=== PATIENT | female | born 1950 | race Caucasian/White ===

== ENCOUNTER → 2018-11-17 | Outpatient (CLI) | payer MEDICARE, OTHER ==
--- NOTE | 2018-11-17 15:06 | CARD ---
MR#: [id number] Date of Study: 11/17/2018 Ordering Physician: LLOYD CONNER, Referring Physician: LLOYD CONNER, Tech: Yolande Dai CLARA APPROVED REPORT EXAM: Two-dimensional and M-mode echocardiogram with Doppler and color Doppler. Other Information Quality : Good Rhythm : NSR INDICATION Peripheral Edema History of Chemotherapy 2D DIMENSIONS RVDd3.1 (2.9-3.5cm)Left Atrium(2D)3.2 (1.6-4.0cm) IVSd1.0 (0.7-1.1cm)Aortic Root(2D)2.7 (2.0-3.7cm) LVDd4.1 (3.9-5.9cm)LVOT Diameter2.0 (1.8-2.4cm) PWd0.9 (0.7-1.1cm)LVDs2.9 (2.5-4.0cm) FS (%) 28.1 %SV40.5 ml LVEF(%)55.0 (>50%) Aortic Valve AoV Peak Marvin.104.7cm/sAoV VTI20.8cm AO Peak GR.4.4mmHgLVOT Peak Marvin.80.2cm/s AO Mean GR.2mmHgAVA (VMAX)2.32cm2 HERI (VTI)2.80cm2 Mitral Valve MV E Islesgze43.6cm/sMV DECEL MPJH610xe MV A Eqenueoj37.8cm/sE/A Ratio0.8 Tricuspid Valve TR P. Sgfebzxn710gq/sRAP PFWZVDIQ5liUc TR Peak Gr.57nxIdEQTL64qpBi Pulmonary Vein S1 Ukaplitj62.2cm/sD2 Crmgpxxw87.3cm/s LEFT VENTRICLE The left ventricle is normal size. There is normal left ventricular wall thickness. The left ventricu lar systolic function is normal and the ejection fraction is within normal range. The Ejection Fracti on is 55%. There is normal LV segmental wall motion. Transmitral Doppler flow pattern is Grade I-abno rmal relaxation pattern. RIGHT VENTRICLE The right ventricle is normal size. The right ventricular systolic function is normal. ATRIA The left atrium size is normal. The right atrium size is normal. The interatrial septum is intact wit h no evidence for an atrial septal defect or patent foramen ovale as noted on 2-D or Doppler imaging. AORTIC VALVE The aortic valve is calcified but opens well. Doppler and Color Flow revealed no significant aortic r egurgitation. There is no significant aortic valvular stenosis. MITRAL VALVE The mitral valve is calcified but opens well. There is no evidence of mitral valve prolapse. There is no mitral valve stenosis. Doppler and Color-flow revealed trace mitral regurgitation. TRICUSPID VALVE The tricuspid valve is normal in structure and function. Doppler and Color Flow revealed mild tricusp id regurgitation. The PA pressure was estimated at 26 mmHg. There is no tricuspid valve stenosis. PULMONIC VALVE The pulmonic valve is not well visualized. Doppler and Color Flow revealed mild pulmonic valvular reg urgitation. There is no pulmonic valvular stenosis. GREAT VESSELS The aortic root is normal in size. The ascending aorta is normal in size. The IVC is normal in size a nd collapses >50% with inspiration. PERICARDIAL EFFUSION There is no evidence of significant pericardial effusion. Critical Notification Critical Value: No <Conclusion> The left ventricular systolic function is normal and the ejection fraction is within normal range. Th e Ejection Fraction is 55%. There is normal LV segmental wall motion. Doppler and Color Flow revealed mild pulmonic valvular regurgitation. No significant pulmonary HTN. Mild diastolic dysfunction. Signed by : Kd Bourne, Electronically Approved : 11/17/2018 15:06:08
== END | disposition home or self-care (01) ==
LOC: ECHO 13:13
PROVIDERS: ATTEND Family Medicine
DX: I37.1 Nonrheumatic pulmonary valve insufficiency (principal); I07.1 Rheumatic tricuspid insufficiency; R60.0 Localized edema
CPT/HCPCS: 93306

== ENCOUNTER → 2018-11-21 | Outpatient (CLI) | payer MEDICARE, OTHER ==
--- NOTE | 2018-11-21 15:42 | RAD ---
MRI right knee without contrast dated 11/21/2018. No comparison available. CLINICAL INDICATION: Right knee pain and popping and swelling for 3 months. TECHNIQUE: Routine multiplanar multisequence MR imaging performed. FINDINGS: Mild tricompartment hypertrophic change with small marginal osteophytes. Thinning and surface irregularity of the articular cartilage throughout. There is full-thickness cartilage fissuring over the weightbearing surface lateral femoral condyle with full-thickness cartilage loss of the lateral tibial plateau. No full-thickness defect of the medial compartment cartilage. There is full-thickness cartilage loss of the lateral patellar facet and patellar apex and lateral femoral trochlea. Small to moderate joint effusion. No intra-articular loose body. Small popliteal cyst. Anterior cruciate and posterior cruciate ligaments intact. Medial and lateral collateral complexes intact. Iliotibial band, popliteus tendon and pes anserine complex within normal limits. Quadriceps and patellar tendon are intact. Mild increased signal within the substance of the distal patellar tendon. Mild patchy edema within the prepatellar and superficial infrapatellar soft tissues. No abnormality of the medial or lateral retinaculum. There is mild lateral patellar subluxation with tibial tubercle to trochlear groove distance estimated at 12 mm. There is a small oblique linear defect at the lateral meniscal body that extends to the femoral articular surface on 2 consecutive coronal slices. Intrasubstance increased signal at the posterior horn, likely mucoid degeneration. Medial meniscus is normal in morphology and signal. IMPRESSION: 1. Mild tricompartmental degenerative arthrosis and chondromalacia. There is full-thickness cartilage loss at the anterior and lateral compartments. 2. Small horizontal oblique tear lateral meniscal body. 3. Small to moderate size joint effusion with small popliteal cyst. 4. Mild patellar tendinosis with mild lateral patellar subluxation. Electronically signed by: Lazaro Jon MD (11/21/2018 3:39 PM) [id number]
== END | disposition home or self-care (01) ==
LOC: MRI 14:06
PROVIDERS: ATTEND Orthopaedic Surgery
DX: S83.011A Lateral subluxation of right patella, initial encounter (principal); S83.281A Other tear of lateral meniscus, current injury, right knee, initial encounter; M17.11 Unilateral primary osteoarthritis, right knee; M94.261 Chondromalacia, right knee; M25.461 Effusion, right knee; M71.21 Synovial cyst of popliteal space [Baker], right knee; M25.761 Osteophyte, right knee; X58.XXXA Exposure to other specified factors, initial encounter; Y93.89 Activity, other specified; Y92.89 Other specified places as the place of occurrence of the external cause; Y99.8 Other external cause status
CPT/HCPCS: 73721

== ENCOUNTER → 2019-01-03 | Outpatient (CLI) | payer MEDICARE, OTHER ==
[~2019-01-03] MED LIST: REGADENOSON 0.4 MG/5 ML DISP.SYRIN. IV ONE
[2019-01-03 12:04] LABS: BILIRUBIN,URINE NEGATIVE (NEG); CLARITY,URINE CLEAR; COLOR,URINE YELLOW; NITRITE,URINE NEGATIVE (NEG); PH,URINE 5.5; PROTEIN,URINE NEGATIVE (NEG-TRACE); UROBILINOGEN,URINE 0.2 mg/dL (0.2 mg/dL)
--- NOTE | 2019-01-03 12:06 | RAD ---
MR#: [id number] Date of Study: 01/03/2019 Ordering Physician: PRINCE BOURNE, Referring Physician: JULIANNE MONTIEL Tech: RT Siddharth Poole) (N) APPROVED REPORT Test Type: Pharmacological Stress Nurse/Tech: Dwain WILKINS Test Indications: Fatigue, and SOB with exertion Cardiac History: See EMR Medications: See EMR Medical History: Ovarian CA w/ chemo treatments, See EMR Resting ECG: SR Resting Heart Rate: 64 bpm Resting Blood Pressure: 143/75mmHg Pretest Chest Pain: No chest pain Nurse/Tech Notes Lungs CTA, Heart tones regular Consent: The procedure was explained to the patient in lay terms. Informed consent was witnessed. Mirza eout was entered into Instant [employer]. History and Stress Test performed by RT Siddharth Delvalle) (N) Pharm. Details Pharmacologic stress testing was performed using 0.4mg per 5ml of regadenoson given intravenously ove r 7-10 seconds. Stress Symptoms No chest pain or symptoms. POST EXERCISE Reason for Termination: Infusion complete Max HR: 89 bpm Max Blood Pressure: 161/72mmHg Chest Pain: No. Arrhythmia: No. ST Change: No. INTERPRETATION Stress EKG Conclusion: NO EVIDENCE OF STRESS INDUCED EKG CHANGES Imaging Protocol IMAGE PROTOCOL: Rest Tc-99m/stress Tc-99m 1 day Rest: Stress: Viability: Radiopharm.Tc99m FexrwoxlrNj39x Sestamibi Rxsb32rYi 33mCi Duration 15min. 15min. Img Date 01/03/2019 01/03/2019 Inj-Img Leie27gjm. 60min. Rest Admin Site:IV - Right AntecubitalAdministrator:RT Virgilio (R)(N) Stress Admin Site: IV - Right AntecubitalAdministrator: RT Siddharth Delvalle)(N) STRESS DATA End Diast. Vol.62.0mlLVEDV index BSA30.0ml End Syst. Vol.6.0mlLVESV index BSA3.0ml Myocardial Lviq606.0gEject. Pmsxwfah52.0% Stress Scores Regional WT0.00Summed WT0.00 Regional WM0.00Summed WM0.00 The rest and stress images show normal perfusion, normal contraction and thickening. LV Perf. Quant 17 Seg. SSS0.00 17 Seg. SRS0.00 17 Seg. SDS0.00 Stress Defect Extent (% LAD)0.00Rest Defect Extent (% LAD)0.00Rev. Defect Extent (% LAD)0.00 Stress Defect Extent (% LCX) 0.00Rest Defect Extent (% LCX)0.00Rev. Defect Extent (% LCX)0.00 Stress Defect Extent (% RCA)0.00Rest Defect Extent (% RCA)0.00Rev. Defect Extent (% RCA)0.00 Stress Defect Extent (% ESTEPHANIA)0.00Rest Defect Extent (% ESTEPHANIA)0.00Rev. Defect Extent (% ESTEPHANIA)0.00 Other Information Quality:Good Risk Assessment: Low Risk IMPRESSION Normal Myocardial Perfusion exercise stress study Conclusion 1. No evidence of EKG changes with stress testing. 2. Normal perfusion at stress/rest. 3. Low risk study. 4. EF > 60%. Signed by : Prince Bourne, Electronically Approved : 01/03/2019 12:06:30
[2019-01-03 12:19] LABS: SQUAMOUS EPITHELIAL CELL,UR FEW /LPF
[2019-01-03 12:21] LABS: BACTERIA,URINE 0 /HPF (0-FEW); RBC,URINE 0 /HPF (0-2); WBC,URINE 0 /HPF (0-4)
== END | disposition home or self-care (01) ==
LOC: NM 07:26
PROVIDERS: ATTEND Internal Medicine Cardiovascular Disease
DX: R53.83 Other fatigue (principal)
CPT/HCPCS: 36415; 78452; 81001; 83880; 93017; A9500; J2785

== ENCOUNTER 2019-02-28 07:29 | Emergency (ER) | payer MEDICARE, OTHER ==
[~2019-02-28] VITALS: Ht 167.6 cm; Wt 98.0 kg
[2019-02-28] MEDS ORDERED: traMADol 50 MG TABLET PO ONE (08:00)
[2019-02-28 08:18] LABS: CLARITY,URINE CLEAR; PROTEIN,URINE NEGATIVE (NEG-TRACE)
[2019-02-28 08:24] VITALS: BP 160/89
[2019-02-28 08:26] LABS: BACTERIA,URINE MANY /HPF (0-FEW); RBC,URINE 0 /HPF (0-2); SQUAMOUS EPITHELIAL CELL,UR OCC /LPF
[2019-02-28 08:29] LABS: COLOR,URINE ORANGE
[2019-02-28] MEDS ORDERED: PHEN100T82 PO (08:35)
[2019-02-28] MEDS ORDERED: TRAM-48 PO (08:35)
[2019-02-28] MEDS ORDERED: CIPR250T30 PO (08:35)
--- NOTE | 2019-02-28 08:35 | PHYS DOC ---
Past Medical History Past Medical History: High Cholesterol, Kidney Infection Additional Past Medical Histor: ovarian cancer, retina detatchment, neuropathy Past Surgical History: Hysterectomy Additional Past Surgical Histo: cataract Alcohol Use: None Drug Use: None Adult General Chief Complaint Chief Complaint: PAIN ON URINATION [facility] HPI Patient is a 68 year old female who presents with complaining of painful ur ination. Patient complaining of urinary frequency and dysuria for the last 1 week like her previous episodes of UTI. Patient denies fever, chills, vomiting, diarrhea and constipation, chest pain and shortness of breath. Patient seen by an urologist for current UTI with plan of cystoscopy next week. Review of Systems Review of Systems Constitutional: Denies fever or chills [] Eyes: Denies change in visual acuity, redness, or eye pain [] HENT: Denies nasal congestion or sore throat [] Respiratory: Denies cough or shortness of breath [] Cardiovascular: No additional information not addressed in HPI [] GI: Denies abdominal pain, nausea, vomiting, bloody stools or diarrhea [] : Denies hematuria, reports dysuria and urinary frequency [] Musculoskeletal: Denies back pain or joint pain [] Integument: Denies rash or skin lesions [] Neurologic: Denies headache, focal weakness or sensory changes [] Endocrine: Denies polyuria or polydipsia [] All other systems were reviewed and found to be within normal limits, except as documented in this note. Current Medications Current Medications Current Medications Medications (Trade) Dose Ordered Sig/Alberto Start Time Stop Time Status Last Admin Dose Admin Tramadol HCl (Ultram) 50 mg 1X ONCE 02/28/19 08:00 02/28/19 08:07 DC 02/28/19 08:24 50 MG Allergies Allergies Allergies Coded Allergies Type Severity Reaction Last Updated Verified No Known Drug Allergies 01/03/19 No Physical Exam Physical Exam Constitutional: Well developed, well nourished, mild distress, non-toxic appearance. [] HENT: Normocephalic, atraumatic, oropharynx moist. Eyes: PERRLA, EOMI, conjunctiva normal, no discharge. [] Neck: Normal range of motion, no tenderness, supple, no stridor. [] Cardiovascular:Heart rate regular rhythm, no murmur [] Lungs & Thorax: Bilateral breath sounds clear to auscultation [] Abdomen: Bowel sounds normal, soft, no tenderness, no masses, no pulsatile masses. [] Skin: Warm, dry, no erythema, no rash. [] Back: No tenderness, no CVA tenderness. [] Extremities: No tenderness, no cyanosis, no clubbing, ROM intact, no edema. [] Neurologic: Alert and oriented X 3, normal motor function, normal sensory function, no focal deficits noted. [] Psychologic: Affect normal, judgement normal, mood normal. [] Current Patient Data Vital Signs Vital Signs Date Time Temp Pulse Resp B/P (MAP) Pulse Ox O2 Delivery O2 Flow Rate FiO2 02/28/19 08:24 66 16 160/89 (112) 98 Room Air 02/28/19 08:03 97.5 97.5 Lab Values Laboratory Tests Test 02/28/19 07:50 Urine Collection Type Unknown Urine Color Obion Urine Clarity Clear Urine pH 5.0 Urine Specific [place] 1.015 Urine Protein Negative mg/dL (NEG-TRACE) Urine Glucose (UA) Negative mg/dL (NEG) Urine Ketones (Stick) mg/dL (NEG) Urine Blood Negative (NEG) Urine Nitrite (NEG) Urine Bilirubin (NEG) Urine Urobilinogen Dipstick 1.0 mg/dL (0.2 mg/dL) Urine Leukocyte Esterase (NEG) Urine RBC 0 /HPF (0-2) Urine WBC 11-20 /HPF (0-4) Urine Squamous Epithelial Cells Occ /LPF Urine Bacteria Many /HPF (0-FEW) EKG EKG [] Radiology/Procedures Radiology/Procedures [] Course & Med Decision Making Course & Med Decision Making Pertinent Labs reviewed. (See chart for details) Evaluation of patient in ER showed 68-year-old female patient with complaining of recurrent UTI symptoms. Patient already has appointment with Dr. Dueñas for cystoscopy. Patient had previous successful treatment with Cipro and pres ription for Cipro was given. Dragon Disclaimer Dragon Disclaimer This electronic medical record was generated, in whole or in part, using a voice recognition dictation system. Departure Departure Impression: Primary Impression: Urinary tract infection Additional Impressions: Dysuria Suprapubic pain Disposition: HOME, SELF-CARE (at 0831) Condition: IMPROVED Referrals: LLOYD CONNER MD (PCP) CASSIDY MCPHERSON MD Patient Instructions: Urinary Tract Infection Additional Instructions: Drink plenty of liquids Follow-up with your primary care physician in 3-5 days Return to ER if not getting better Follow-up with your scheduled appointment with urologist Scripts Tramadol Hcl (ULTRAM) 50 Mg Tablet 50 MG PO Q6HRS PRN for PAIN, #14 TAB 0 Refills Prov: FERNANDO MCDERMOTT MD 02/28/19 Phenazopyridine Hcl (PYRIDIUM) 100 Mg Tablet 100 MG PO TID for dysuria, #10 TAB Prov: FERNANDO MCDERMOTT MD 02/28/19 Ciprofloxacin Hcl (CIPRO) 250 Mg Tablet 1 TAB PO BID for infection, #14 TAB 1 Refill Prov: FERNANDO MCDERMOTT MD 02/28/19 Problem Qualifiers Primary Impression: Urinary tract infection Urinary tract infection type: acute cystitis Hematuria presence: without hematuria Qualified Codes: N30.00 - Acute cystitis without hematuria FERNANDO MCDERMOTT MD Feb 28, 2019 08:35
== END 2019-02-28 09:03 | disposition home or self-care (01) ==
LOC: ER 07:29
DX: N30.00 Acute cystitis without hematuria (principal); E78.00 Pure hypercholesterolemia, unspecified; Z87.448 Personal history of other diseases of urinary system; Z90.710 Acquired absence of both cervix and uterus
CPT/HCPCS: 81001; 87086; 99284

== ENCOUNTER → 2019-05-03 | Outpatient (CLI) | payer MEDICARE, MEDICAID ==
[~2019-05-03] MED LIST changes: +CIPR250T30 PO; +PHEN100T82 PO; -REGADENOSON 0.4 MG/5 ML DISP.SYRIN. IV ONE; +TRAM-48 PO
--- NOTE | 2019-05-03 12:54 | RAD ---
DATE: 05/03/2019. EXAM: MAMMO JAMES SCREENING BILATERAL HISTORY: Routine screening. COMPARISON: None This study was interpreted with the benefit of Computerized Aided Detection (CAD). FINDINGS: Breast Density: SCATTERED The breast parenchyma shows scattered fibroglandular densities. Breast parenchyma level B. Oval-shaped mass is seen in the left breast at 8-9:00 position measuring 7 mm longest dimension and approximately 5 cm from the nipple on cc view. Right breast demonstrate no mammographic abnormality. The skin and nipples are within normal limits. IMPRESSION: Oval-shaped mass in the left medial breast likely intramammary lymph node or small cyst. BI-RADS CATEGORY: 0 INCOMPLETE: NEED ADDITIONAL IMAGING EVAULATION AND/OR PRIOR MAMMOGRAMS FOR COMPARISON RECOMMENDED FOLLOW-UP: ADD ADDITIONAL IMAGING. Ultrasound of the left medial breast recommended. PQRS compliance statement: Patient information was entered into a reminder system with a target due date for the next mammogram. Mammography is a sensitive method for finding small breast cancers, but it does not detect them all and is not a substitute for careful clinical examination. A negative mammogram does not negate a clinically suspicious finding and should not result in delay in biopsying a clinically suspicious abnormality. "Our facility is accredited by the [employer] Mammography [employer]."
== END | disposition home or self-care (01) ==
LOC: MAMMO 09:04
PROVIDERS: ATTEND Family Medicine
DX: Z12.31 Encounter for screening mammogram for malignant neoplasm of breast (principal); N63.22 Unspecified lump in the left breast, upper inner quadrant
CPT/HCPCS: 77063; 77067

== ENCOUNTER → 2019-05-04 | Outpatient (CLI) | payer MEDICARE, MEDICAID ==
--- NOTE | 2019-05-04 12:42 | RAD ---
Indication: Left breast callback TECHNIQUE: Limited ultrasound of the left breast COMPARISON: Mammogram from 05/03/2019. FINDINGS: There is an oval-shaped hypoechoic mass at 8:00 position approximately 5 cm from the nipple measuring 0.7 x 0.2 x 0.5 cm without internal vascularity. No posterior acoustic characteristics. The lesion is wider than taller. IMPRESSION: Sonographic abnormality corresponding to mammographically seen lesion as described above. BI-RADS 0: Incomplete. Patient reports having multiple previous mammograms in [place]. Request will be made for those mammograms for comparison. Electronically signed by: Yimi Carver DO (05/04/2019 12:39 PM) [facility]
== END | disposition home or self-care (01) ==
LOC: US 11:41
PROVIDERS: ATTEND Family Medicine
DX: N63.24 Unspecified lump in the left breast, lower inner quadrant (principal)
CPT/HCPCS: 76641

== ENCOUNTER → 2020-05-30 | Outpatient (CLI) | payer MEDICARE, MEDICAID ==
[~2020-05-30] MED LIST changes: +IOHEXOL 300 MG/ML 100ML VIAL. ONE
--- NOTE | 2020-05-31 09:40 | RAD ---
CT ABDOMEN WO CONTRAST Indication: Generalized abdominal pain Technique: Noncontrast CT imaging was performed of the abdomen, multiplanar reconstruction images submitted. No oral contrast was given. Pelvis was not imaged. One or more of the following individualized dose reduction techniques were utilized for this examination: 1. Automated exposure control 2. Adjustment of the mA and/or kV according to patient size 3. Use of iterative reconstruction technique. Comparison: None Findings: There is linear-appearing density of the lower lobes bilaterally near the bases, more likely component of atelectasis or fibrotic change. Accurate evaluation of the abdominal visceral organs is limited without intravenous contrast, no obvious abnormality identified of the liver, pancreas, or spleen. Gallbladder is present without obvious intraluminal abnormality by CT. There is mild fullness of the left adrenal gland without discrete nodularity, no right adrenal nodularity. There is no hydronephrosis or renal calculus. Accurate evaluation of bowel is limited without oral contrast. Visualized bowel is not dilated. There is no free fluid or free air. There is a fat-containing ventral hernia to the right of the midline in the superior abdomen best seen image 33 series 2, neck about 1.7 cm transverse, transverse dimension hernia sac about 2.3 cm. More inferiorly, there is segment of mid transverse colon protruding anteriorly with possible degree of preserved overlying lax fascia inferiorly although fascial defect at the superior aspect better appreciated on sagittal images. There is vmpn-qn-fqieexsv lumbar levoscoliosis. There is grade 1 anterior spondylolisthesis L3-4 and L4-5, multilevel lumbar facet degenerative change. There is also variable degenerative disc disease and lumbar spine, also of visualized inferior thoracic levels. IMPRESSION: 1. There is a fat-containing ventral hernia of the superior right abdomen, no internal bowel. There is also anterior protrusion of a segment of mid transverse colon beyond the expected fascial plane near the umbilicus, apparently a component of laxity of the fascia although also fascial defect near the umbilicus. 2. There is lumbar levoscoliosis. There is grade 1 anterior spondylolisthesis L3-4 and L4-5 at which there is facet degenerative change. There is also variable thoracolumbar degenerative disc disease. Electronically signed by: Surendra Plasencia MD (05/31/2020 9:38 AM) [id number]
== END | disposition home or self-care (01) ==
LOC: CT 14:45
PROVIDERS: ATTEND Family Medicine
DX: K43.9 Ventral hernia without obstruction or gangrene (principal); M41.86 Other forms of scoliosis, lumbar region; M47.816 Spondylosis without myelopathy or radiculopathy, lumbar region; M43.16 Spondylolisthesis, lumbar region; M51.36 Other intervertebral disc degeneration, lumbar region
CPT/HCPCS: 74150

== ENCOUNTER → 2020-06-03 | Outpatient (CLI) | payer MEDICARE, MEDICAID ==
[~2020-06-03] MED LIST changes: -IOHEXOL 300 MG/ML 100ML VIAL. ONE
--- NOTE | 2020-06-03 15:58 | RAD ---
INDICATION: 69 years of age asymptomatic female patient presents for screening mammography. TECHNIQUE: Full field craniocaudal and mediolateral oblique images of both breasts were obtained using digital technique with tomosynthesis and also analyzed with computer-aided detection software. COMPARISON: 05/03/2019 . BREAST COMPOSITION: Category B: There are scattered fibroglandular densities. FINDINGS: Benign calcifications are present. The parenchymal pattern appears stable. No suspicious masses, microcalcifications or architectural distortion is present to suggest malignancy in either breast. The visualized axillae are unremarkable. IMPRESSION: No mammographic evidence of malignancy. RECOMMENDATION: Annual screening mammography is recommended, unless clinically indicated sooner based on symptoms or change in physical exam. BIRADS 1: NEGATIVE This study was interpreted with the benefit of Computerized Aided Detection (CAD). Patient information is entered into the reminder system with a target due date for the next screening mammogram. Mammography is the most sensitive method for finding small breast cancers, but it does not detect them all and is not a substitute for careful clinical examination. A negative mammogram does not negate a clinically suspicious finding and should not result in delay in biopsying a clinically suspicious abnormality. "Our facility is accredited by the [employer] Mammography Program." Electronically signed by: Mal Colindres MD (06/03/2020 3:55 PM) [id number]
== END | disposition home or self-care (01) ==
LOC: MAMMO 08:28
PROVIDERS: ATTEND Family Medicine
DX: Z12.31 Encounter for screening mammogram for malignant neoplasm of breast (principal); N64.89 Other specified disorders of breast
CPT/HCPCS: 77063; 77067

== ENCOUNTER 2021-03-27 13:40 | Emergency (ER) | payer MEDICARE, MEDICAID ==
[~2021-03-27] VITALS: Ht 167.6 cm; Wt 102.2 kg
[2021-03-27] MEDS ORDERED: predniSONE 20 MG TABLET PO ONE (14:00)
[2021-03-27] MEDS ORDERED: IPRATRPIUM/ALBUTEROL 0.5/2.5MG 3 ML NEBU. NEB ONE (14:00)
--- NOTE | 2021-03-27 14:02 | PHYS DOC ---
Past Medical History Past Medical History: Asthma, High Cholesterol, Hypertension, Kidney Infection Additional Past Medical Histor: ovarian cancer, retina detatchment, neuropathy Past Surgical History: Hysterectomy Additional Past Surgical Histo: cataract Smoking Status: Never Smoker Alcohol Use: None Drug Use: None General Adult EDM: Chief Complaint: CHEST PAIN HPI: HPI: Patient is a 70 year old female with a history of asthma, high cholesterol, hypertension, who presents to the ED today complaining of chest tightness from asthma. Patient states symptoms of been going on for 1 week. Patient states her inhaler 3 years ago. Denies any fever. Denies any chest pain, denies any shortness of breath. Review of Systems: Review of Systems: Constitutional: Denies fever or chills. [] Eyes: Denies change in visual acuity. [] HENT: Denies nasal congestion or sore throat. [] Respiratory: Reports chest tightness. Denies cough or shortness of breath. [] Cardiovascular: Denies chest pain or edema. [] GI: Denies abdominal pain, nausea, vomiting, bloody stools or diarrhea. [] : Denies dysuria. [] Musculoskeletal: Denies back pain or joint pain. [] Integument: Denies rash. [] Neurologic: Denies headache, focal weakness or sensory changes. [] [] Psychiatric: Denies depression or anxiety. [] Heart Score: C/O Chest Pain: N/A Risk Factors: Risk Factors: DM, Current or recent (<one month) smoker, HTN, HLP, family history of CAD, obesity. Risk Scores: Score 0 - 3: 2.5% MACE over next 6 weeks - Discharge Home Score 4 - 6: 20.3% MACE over next 6 weeks - Admit for Clinical Observation Score 7 - 10: 72.7% MACE over next 6 weeks - Early Invasive Strategies Current Medications: Current Medications Medications (Trade) Dose Ordered Sig/Alberto Start Time Stop Time Status Last Admin Dose Admin Albuterol/ Ipratropium (Duoneb) 3 ml 1X ONCE 03/27/21 14:00 03/27/21 14:01 UNV Prednisone (Prednisone) 60 mg 1X ONCE 03/27/21 14:00 03/27/21 14:01 UNV Allergies: Allergies: Allergies Coded Allergies Type Severity Reaction Last Updated Verified I S O L A T I O N *CONTACT* Allergy Unknown 03/06/19 Yes No Known Medication Allergies Allergy Unknown 03/06/19 Yes Physical Exam: PE: Constitutional: Well developed, well nourished, no acute distress, non-toxic appearance. [] HENT: Normocephalic, atraumatic, bilateral external ears normal, oropharynx moist, no oral exudates, nose normal. [] Eyes: PERRLA, EOMI, conjunctiva normal, no discharge. [] Neck: Normal range of motion, no tenderness, supple, no stridor. [] Cardiovascular:Heart rate regular rhythm, no murmur [] Lungs & Thorax: B slight crackles noted to posterior lung bases. Abdomen: Bowel sounds normal, soft, no tenderness, no masses, no pulsatile masses. [] Skin: Warm, dry, no erythema, no rash. [] Back: No tenderness, no CVA tenderness. [] Extremities: No tenderness, no cyanosis, no clubbing, ROM intact, no edema. [] Neurologic: Alert and oriented X 3, normal motor function, normal sensory function, no focal deficits noted. [] Psychologic: Affect normal, judgement normal, mood normal. [] EKG: EK interpreted by Dr. Reddy sinus rhythm heart rate 90 no STEMI [] Radiology/Procedures: Radiology/Procedures: []PROCEDURE: CHEST AP ONLY EXAMINATION: Chest radiograph. VIEWS: Single view COMPARISON: None INDICATION:70 years, Female, chest tightness. FINDINGS: Normal cardiomediastinal silhouette. Bibasilar patchy airspace opacities No pleural effusion or pneumothorax. No acute osseous process. IMPRESSION: Bibasilar patchy airspace opacities, may represent subsegmental atelectasis/scarring versus pneumonia. Clinical correlation is advised. Electronically signed by: Alyce Evangelista MD (03/27/2021 2:54 PM) [facility] DICTATED and SIGNED BY: ALYCE EVANGELISTA MD DATE: 03/27/21 [id number] 0 Course & Med Decision Making: Course & Med Decision Making Pertinent Labs and Imaging studies reviewed. (See chart for details) This is a 70-year-old female patient presented to the ED today complaining of chest tightness from asthma, symptoms for 1 week. Chest x-ray interpreted by radiologist was noted for bibasilar patchy airspace opacities, may represent subsegmental atelectasis/scarring versus pneumonia. Clinical correlation is advised. Patient was given a DuoNeb treatment, prednisone. Considering her lung sounds and x-ray results we will go ahead and start this patient on Augmentin, she was also discharged on prednisone and albuterol inhaler Recommended following up with PCP next week. Dragon Disclaimer: Dragon Disclaimer: This electronic medical record was generated, in whole or in part, using a voice recognition dictation system. Departure Departure Impression: Primary Impression: Asthma exacerbation Qualified Codes: J45.31 - Mild persistent asthma with (acute) exacerbation Additional Impression: Bilateral pneumonia Qualified Codes: J18.9 - Pneumonia, unspecified organism Disposition: HOME / SELF CARE / HOMELESS Condition: STABLE Referrals: LLOYD CONNER MD (PCP) Follow-up in 1 to 2 weeks Patient Instructions: Asthma, Adult, [id number], Pneumonia, Adult, [id number] Additional Instructions: You were evaluated in the emergency room, your x-ray shows you could have some pneumonia. We put you on antibiotics, ensure you complete it. Use the breathing treatments as prescribed. Come back to the ED at any point symptoms worsen Scripts Albuterol Sulfate (Proair Respiclick) 90 Mcg Aer.pow.ba 2 PUFF IH PRN Q4-6HRS PRN for shortness of breath, #1 INHALER 0 Refills Prov: JERRY BANUELOS NO BAKE MOLDER 03/27/21 Prednisone (PREDNISONE) 50 Mg Tablet 1 TAB PO DAILY, #5 TAB Prov: JERRY BANUELOS Zachery NO BAKE MOLDER 03/27/21 Amoxicillin/Potassium Clav (AMOX TR-K CLV 875-125 MG TAB) 1 Each Tablet 1 TAB PO BID, #20 TAB Prov: JERRY BANUELOS Zachery NO BAKE MOLDER 03/27/21 JERRY BANUELOS NO BAKE MOLDER Mar 27, 2021 14:02
--- NOTE | 2021-03-27 14:57 | RAD ---
EXAMINATION: Chest radiograph. VIEWS: Single view COMPARISON: None INDICATION:70 years, Female, chest tightness. FINDINGS: Normal cardiomediastinal silhouette. Bibasilar patchy airspace opacities No pleural effusion or pneum othorax. No acute osseous process. IMPRESSION: Bibasilar patchy airspace opacities, may represent subsegmental atelectasis/scarring versus pneumonia . Clinical correlation is advised. Electronically signed by: Irena Evangelista MD (03/27/2021 2:54 PM) [facility]
[2021-03-27 15:05] VITALS: BP 129/59
[2021-03-27] MEDS ORDERED: PRED50TA PO (15:33)
[2021-03-27] MEDS ORDERED: PROAIR RESPICL90 MCG IH (15:33)
[2021-03-27] MEDS ORDERED: AMOX1TAB11 PO (15:33)
== END 2021-03-27 15:55 | disposition home or self-care (01) ==
LOC: ER 13:40
DX: J45.31 Mild persistent asthma with (acute) exacerbation (principal); J18.9 Pneumonia, unspecified organism; E78.00 Pure hypercholesterolemia, unspecified; I10 Essential (primary) hypertension; Z90.710 Acquired absence of both cervix and uterus; Z88.8 Allergy status to other drugs, medicaments and biological substances
CPT/HCPCS: 71045; 93005; 99285; J7512

== ENCOUNTER → 2021-06-10 | Outpatient (CLI) | payer MEDICARE, MEDICAID ==
[~2021-06-10] MED LIST changes: +AMOX1TAB11 PO; +PRED50TA PO; +PROAIR RESPICL90 MCG IH
--- NOTE | 2021-06-12 15:54 | RAD ---
DATE: 06/10/2021 EXAM: MAMMO JAMES SCREENING BILATERAL HISTORY: Screening. Personal history of ovarian cancer age 66. COMPARISON: Multiple prior exams dating back to 01/23/2016 This study was interpreted with the benefit of Computerized Aided Detection (CAD). Breast Density: SCATTERED The breast parenchyma shows scattered fibroglandular densities. Breast parenchyma level B. FINDINGS: No mass, suspicious calcification, or architectural distortion in either breast. IMPRESSION: No evidence of malignancy. BI-RADS CATEGORY: 2 BENIGN FINDING(S) RECOMMENDED FOLLOW-UP: 12M 12 MONTH FOLLOW-UP PQRS compliance statement: Patient information was entered into a reminder system with a target due date for the next mammogram. Mammography is a sensitive method for finding small breast cancers, but it does not detect them all and is not a substitute for careful clinical examination. A negative mammogram does not negate a clinically suspicious finding and should not result in delay in biopsying a clinically suspicious abnormality. "Our facility is accredited by the [employer] Mammography Program."
== END ==
LOC: MAMMO 08:55
PROVIDERS: ATTEND Family Medicine
DX: Z12.31 Encounter for screening mammogram for malignant neoplasm of breast (principal)
CPT/HCPCS: 77063; 77067

== ENCOUNTER 2021-07-10 09:58 | Emergency (ER) | payer MEDICARE, MEDICAID ==
[~2021-07-10] VITALS: Ht 167.6 cm; Wt 98.3 kg
[2021-07-10] MEDS ORDERED: IPRATRPIUM/ALBUTEROL 0.5/2.5MG 3 ML NEBU. NEB ONE (10:30)
[2021-07-10] MEDS ORDERED: predniSONE 20 MG TABLET PO ONE (10:30)
--- NOTE | 2021-07-10 10:54 | RAD ---
Single view of the chest. 07/10/2021 10:34 AM Indication: Reason: cough / Spl. Instructions: / History: Comparison: Chest radiograph March 27, 2021 Findings: There is no focal consolidation. There is no pleural effusion or pneumothorax. Heart size i s normal. No acute osseous abnormalities are seen. Impression: No evidence of acute cardiopulmonary process. Electronically signed by: Jamison Oconnell MD (07/10/2021 10:52 AM) [id number]
[2021-07-10] MEDS ORDERED: PRED50TA PO (12:01)
[2021-07-10] MEDS ORDERED: PROAIR RESPICL90 MCG IH (12:01)
--- NOTE | 2021-07-10 12:02 | PHYS DOC ---
Past Medical History Past Medical History: Asthma, High Cholesterol, Hypertension, Kidney Infection Additional Past Medical Histor: ovarian cancer,retina detatchment,neuropathy (JERRY BANUELOS SALES AND MERCHANDISING ASSOCIATE) Past Surgical History: Appendectomy, Hysterectomy, Tonsillectomy Additional Past Surgical Histo: cataract,DETACHED RETINA (JERRY BANUELOS SALES [employer] MERCH[employer]ISING ASSOCIATE) Smoking Status: Never Smoker Alcohol Use: None Drug Use: None (JERRY BANUELOS SALES [employer]CH[employer]ISING ASSOCIATE) General Adult EDM: Chief Complaint: CHEST PAIN HPI: HPI: Patient is a 70 year old female with history of hypertension, high cholesterol, who presents to the ED today complaining of chest tightness and a dry hacking cough, symptoms for 2 days. Patient denies any fever. Patient denies any chest pain. She states clearly "it is not my heart". She states this is asthma. She states the last time she was here she got a breathing treatment and prednisone and this relieved her symptoms. She states she is fully vaccinated against Covid. (JERRY BANUELOS SALES [employer] MERCH[employer]ISING ASSOCIATE) Review of Systems: Review of Systems: Constitutional: Denies fever or chills. [] Eyes: Denies change in visual acuity. [] HENT: Denies nasal congestion or sore throat. [] Respiratory: Reports chest tightness, cough, denies shortness of breath. [] Cardiovascular: Denies chest pain or edema. [] GI: Denies abdominal pain, nausea, vomiting, bloody stools or diarrhea. [] : Denies dysuria. [] Musculoskeletal: Denies back pain or joint pain. [] Integument: Denies rash. [] Neurologic: Denies headache, focal weakness or sensory changes. [] Psychiatric: Denies depression or anxiety. [] (JERRY BANUELOS SALES [employer] MERCH[employer]ISING ASSOCIATE) Heart Score: C/O Chest Pain: N/A Risk Factors: Risk Factors: DM, Current or recent (<one month) smoker, HTN, HLP, family history of CAD, obesity. Risk Scores: Score 0 - 3: 2.5% MACE over next 6 weeks - Discharge Home Score 4 - 6: 20.3% MACE over next 6 weeks - Admit for Clinical Observation Score 7 - 10: 72.7% MACE over next 6 weeks - Early Invasive Strategies (JERRY BANUELOS SAL[employer]CH[employer]ISING ASSOCIATE) Current Medications: Current Medications Medications (Trade) Dose Ordered Sig/Alberto Start Time Stop Time Status Last Admin Dose Admin Albuterol/ Ipratropium (Duoneb) 3 ml 1X ONCE 07/10/21 10:30 07/10/21 10:35 DC 07/10/21 11:54 3 ML Prednisone (Prednisone) 60 mg 1X ONCE 07/10/21 10:30 07/10/21 10:35 DC 07/10/21 10:49 60 MG (JERRY BANUELOS [employer]ISING [employer]IATE) Allergies: Allergies: Allergies Coded Allergies Type Severity Reaction Last Updated Verified I S O L A T I O N *CONTACT* Allergy Unknown 03/06/19 Yes No Known Medication Allergies Allergy Unknown 03/06/19 Yes (JERRY BANUELOS SAL[employer]ISING ASSOCIATE) Physical Exam: PE: Constitutional: Well developed, well nourished, no acute distress, non-toxic appearance. [] HENT: Normocephalic, atraumatic, bilateral external ears normal, oropharynx moist, no oral exudates, nose normal. [] Eyes: PERRLA, EOMI, conjunctiva normal, no discharge. [] Neck: Normal range of motion, no tenderness, supple, no stridor. [] Cardiovascular:Heart rate regular rhythm, no murmur [] Lungs & Thorax: Tight chest Abdomen: Bowel sounds normal, soft, no tenderness, no masses, no pulsatile masses. [] Skin: Warm, dry, no erythema, no rash. [] Back: No tenderness, no CVA tenderness. [] Extremities: No tenderness, no cyanosis, no clubbing, ROM intact, no edema. [] Neurologic: Alert and oriented X 3, normal motor function, normal sensory function, no focal deficits noted. [] Psychologic: Affect normal, judgement normal, mood normal. [] (JERRY BANUELOS [employer] SALES [employer]CH[employer]ISING ASSOCIATE) Current Patient Data: Vital Signs: Vital Signs Date Time Temp Pulse Resp B/P (MAP) Pulse Ox O2 Delivery O2 Flow Rate FiO2 07/10/21 10:01 98.2 81 20 169/89 (115) 96 Room Air 98.2 (JERRY BANUELOS [employer]acher[employer] SALES [employer]ISING ASSOCIATE) EKG: EK interpreted by Dr. Roa sinus rhythm heart rate 74 no STEMI [] (KJLamontJERRY Zachery SALES AND MERCHANDISING ASSOCIATE) Radiology/Procedures: Radiology/Procedures: []PROCEDURE: CHEST AP ONLY Single view of the chest. 07/10/2021 10:34 AM Indication: Reason: cough / Spl. Instructions: / History: Comparison: Chest radiograph March 27, 2021 Findings: There is no focal consolidation. There is no pleural effusion or pneumothorax. Heart size is normal. No acute osseous abnormalities are seen. Impression: No evidence of acute cardiopulmonary process. Electronically signed by: Jamison Tobin MD (07/10/2021 10:52 AM) [id number] DICTATED and SIGNED BY: JAMISON TOBIN MD DATE: 07/10/21 [id number] (JERRY BANUELOS SALES [employer] MERCH[employer]ISING ASSOCIATE) Course & Med Decision Making: Course & Med Decision Making Pertinent Labs and Imaging studies reviewed. (See chart for details) This a 70-year-old female patient presented to the ED today with chest tightness and a cough that began 2 days ago, history of asthma, patient feels symptoms are consistent with her asthma and is refusing cardiac work-up. O2 sats 96% on room air. Chest x-ray is negative, EKG is negative. Patient was given prednisone and a DuoNeb treatment. Feeling better. Discharge to home with prednisone and breathing treatments. Follow-up with her PCP next week (JERRY BANUELOS SAL[employer]CH[employer]ISING ASSOCIATE) Course & Med Decision Making I was the Attending physician on the above date of service of this patient. This patient was evaluated, examined, treated, and dispositioned from the emergency department by the mid-level practitioner. Although I was working at the time , no assistance was requested. Electronically signed, Noel Roa DO (NOEL ROA DO) Patti Disclaimer: Patti Disclaimer: This electronic medical record was generated, in whole or in part, using a voice recognition dictation system. (JERRY BANUELOS SALES [employer] MERCHANDISING ASSOCIATE) Departure Departure Impression: Primary Impression: Asthma exacerbation Qualified Codes: J45.21 - Mild intermittent asthma with (acute) exacerbation Disposition: HOME / SELF CARE / HOMELESS Condition: STABLE Referrals: LLOYD CONNER MD (PCP) Follow-up next week Patient Instructions: Asthma, Adult, [id number] Additional Instructions: You were evaluated in the emergency room with asthma exacerbation. Your chest x-ray is negative for any acute findings/pneumonia. We encourage you to use breathing treatments as needed for shortness of breath. Take the prescribed prednisone until completed. Follow-up with your doctor next week Scripts Albuterol Sulfate (Proair Respiclick) 90 Mcg Aer.pow.ba 2 PUFF IH PRN Q4HRS PRN for shortness of breath, #1 INHALER 0 Refills Prov: JERRY BANUELOS APRN 07/10/21 Prednisone (PREDNISONE) 50 Mg Tablet 1 TAB PO DAILY, #4 TAB Prov: JERRY BANUELOS APRN 07/10/21 JERRY BANUELOS APRN Jul 10, 2021 12:02 NOEL ROA DO Jul 11, 2021 16:03
[2021-07-10 12:03] VITALS: BP 138/63
--- NOTE | 2021-07-10 13:05 | EKG ---
[facility] [address] [place] [address] Test Date: 2021-07-10 Test Time: 10:10:50 Pat Name: ARDEN JOY Department: Room: Gender: F Windows Support Engineer: : [id number] Requested By: JERRY BANUELOS Order Number: [id number] Reading MD: Brandon Yeager Measurements Intervals [place] Rate: 74 P: 49 KS: 202 QRS: 34 QRSD: 80 T: -7 QT: 396 QTc: 445 Interpretive Statements SINUS RHYTHM T ABNORMALITY IN INFERIOR LEADS ABNORMAL ECG Electronically Signed On 07-11-2021 13:30:55 CDT by Brandon Yeager
== END 2021-07-10 12:17 | disposition home or self-care (01) ==
LOC: ER 09:58 → 5 NORTH 11:35 → UNDOADMIN 11:35 → ER 12:17
DX: J45.21 Mild intermittent asthma with (acute) exacerbation (principal); E78.00 Pure hypercholesterolemia, unspecified; I10 Essential (primary) hypertension; Z88.8 Allergy status to other drugs, medicaments and biological substances
CPT/HCPCS: 71045; 93005; 94640; 99285; J7512